=== PATIENT | male | born 1990 | race African-American/Black ===

== ENCOUNTER 2017-07-18 06:40 | Emergency (ER) | payer OTHER ==
[~2017-07-18] VITALS: Ht 188 cm; Wt 89.0 kg
[2017-07-18] MEDS ORDERED: KETOROLAC 30MG/ML VIAL IM ONE (09:45)
[2017-07-18] MEDS ORDERED: ONDANSETRON HCL 4MG/2ML VIAL IV STA (10:32)
[2017-07-18] MEDS ORDERED: SODIUM CHLORIDE 0.9% 1,000 ML IV ONE (10:32)
[2017-07-18] MEDS ORDERED: MORPHINE SULFATE 4 MG/ML CPJ (NOT FOR IM USE) IV STA (10:32)
[2017-07-18] MEDS ORDERED: MORPHINE SULFATE 10 MG/ML CPJ IV SCH (10:45)
[2017-07-18 10:48] LABS: HEMATOCRIT. 43.8 % (42.0-52.0); HEMOGLOBIN. 15.3 g/dL (14.0-18.0); MEAN CORPUSCULAR HEMOGLOBIN 31.2 pg (28.0-32.0); MEAN CORPUSCULAR VOLUME 89.1 fL (80.0-94.0); MEAN PLATELET VOLUME 9.2 fl (7.4-10.4); PLATELET 157 x1000/uL (130-400); RED BLOOD CELL COUNT 4.91 mill/uL (4.7-6.1); RED CELL DISTRIBUTION WIDTH 13.1 % (11.6-14.6)
[2017-07-18 11:04] LABS: CARBON DIOXIDE 28 mEq/L (21-32); CHLORIDE 106 mEq/L (98-107)
[2017-07-18 11:17] LABS: PLATELET ESTIMATE NORMAL
[2017-07-18] MEDS ORDERED: IOHEXOL-300 100 ML BOTTLE ONE (12:08)
[2017-07-18] MEDS ORDERED: DEXAMETHASONE 10 MG/ML VIAL IV ONE (13:45)
[2017-07-18 14:42] VITALS: BP 126/73
== END 2017-07-18 14:43 | disposition home or self-care (01) ==
LOC: ER 07:14
DX: J02.9 Acute pharyngitis, unspecified (principal); F17.200 Nicotine dependence, unspecified, uncomplicated
CPT/HCPCS: 36415; 70491; 80048; 85025; 87070; 87430; 96361; 96372; 96374; 96375; 99285; J1885; J2270; J2405; J7030; Q9967

== ENCOUNTER 2017-11-24 04:45 | Emergency (ER) | payer SELFPAY ==
[~2017-11-24] VITALS: Ht 188 cm; Wt 84.0 kg
[2017-11-24] MEDS ORDERED: ACETAMINOPHEN 325MG TABLET PO ONE (06:45)
[2017-11-24 07:25] VITALS: BP 132/88
== END 2017-11-24 07:26 | disposition home or self-care (01) ==
LOC: ER 04:45
DX: K08.89 Other specified disorders of teeth and supporting structures (principal); F12.10 Cannabis abuse, uncomplicated
CPT/HCPCS: 99283

== ENCOUNTER 2019-02-23 23:20 | Emergency (ER) | payer SELFPAY ==
[~2019-02-23] VITALS: Ht 188 cm; Wt 89.8 kg
[2019-02-24 03:30] VITALS: BP 125/82
[2019-02-24] MEDS ORDERED: IBUPROFEN 600MG TABLET PO ONE (03:30)
== END 2019-02-24 04:05 | disposition home or self-care (01) ==
LOC: ER 23:20
DX: K02.9 Dental caries, unspecified (principal); K04.7 Periapical abscess without sinus; K05.6 Periodontal disease, unspecified
CPT/HCPCS: 99283

== ENCOUNTER 2024-08-23 00:17 | Emergency (ER) | payer OTHER ==
[~2024-08-23] VITALS: Ht 180.3 cm; Wt 90.0 kg
[2024-08-23 00:18] VITALS: TEMP 97.8; O2SAT 100
[2024-08-23] MEDS: SODIUM CHLORIDE 0.9% 1,000 ML IV ONE (01:09)
[2024-08-23 01:21] LABS: BASOPHILS % 0.4 % (0.0-2.0); EOSINOPHILS % 1.4 % (0.0-5.0); HEMATOCRIT. 39.9 % (42.0-52.0); HEMOGLOBIN. 13.4 g/dL (14.0-18.0); LYMPHOCYTES % 28.3 % (20.0-50.0); MEAN CORPUSCULAR HGB CONC 33.6 g/dL (31.0-37.0); MEAN CORPUSCULAR VOLUME 92.2 fL (80.0-94.0); MEAN PLATELET VOLUME 8.7 fl (7.4-10.4); MONOCYTES % 6.9 % (2.0-8.0); PLATELET 236 x1000/uL (130-400); RED BLOOD CELL COUNT 4.33 mill/uL (4.7-6.1); RED CELL DISTRIBUTION WIDTH 12.5 % (11.6-14.6); WHITE BLOOD COUNT 10.1 x1000/uL (4.5-11.0)
[2024-08-23 01:31] LABS: CARBON DIOXIDE 27 mEq/L (21-32); CHLORIDE 106 mEq/L (98-107); POTASSIUM 3.3 mEq/L (3.5-5.1); SODIUM 140 mEq/L (136-145)
[2024-08-23 01:32] LABS: CALCIUM 9.2 mg/dL (8.7-10.4)
[2024-08-23 01:36] LABS: CREATININE 1.1 mg/dL (0.6-1.3); GLUCOSE 112 mg/dL (70-105)
[2024-08-23 01:37] LABS: ETHANOL BLOOD < 10 mg/dL (<10); UREA NITROGEN BLOOD 13 mg/dL (9-23)
[2024-08-23 01:38] LABS: TROPONIN I HIGH SENSITIVITY 4 ng/L (3.0-53)
[2024-08-23] MEDS: TETANUS, DIPHTHERIA, PERTUSSIS VAC/PF 0.5ML (>10YR OLD) IM ONE (01:54)
[2024-08-23] MEDS: LIDOCAINE HCL/EPINEPHRINE 1%-EPI 1:100,000 20ML VIAL INFIL ONE (03:34)
[2024-08-23] MEDS: BACITRACIN ZINC OINT UDPKT TOP ONE (03:34)
[2024-08-23] MEDS: POTASSIUM CHLORIDE 20MEQ/PACKET PO NR (03:39)
[2024-08-23 05:05] LABS: *AMPHETAMINES SCREEN URINE NEGATIVE (NEGATIVE); *BARBITURATES SCREEN URINE NEGATIVE (NEGATIVE); *BENZODIAZEPINES SCREEN URINE NEGATIVE (NEGATIVE); *COCAINE SCREEN URINE NEGATIVE (NEGATIVE); CANNABINOID URINE SCREEN PRESUMPTIVE POSITIVE (NEGATIVE); METHADONE URINE SCREEN NEGATIVE (NEGATIVE); OPIATES URINE SCREEN NEGATIVE (NEGATIVE); PHENCYCLIDINE URINE SCREEN NEGATIVE (NEGATIVE)
[2024-08-23 05:06] LABS: ECSTASY MDMA SCREEN URINE NEGATIVE (NEGATIVE)
[2024-08-23 06:28] VITALS: BP 103/51; PULSE 58; RESP 20; O2SAT 99
== END 2024-08-23 06:48 | disposition short-term general hospital (02) ==
LOC: ER 00:17
DX: R55 Syncope and collapse (principal); R00.1 Bradycardia, unspecified; J45.909 Unspecified asthma, uncomplicated; Z20.822 Contact with and (suspected) exposure to COVID-19
CPT/HCPCS: 80305; 80048; 80320; 85025; 85379; 84484; 36415; 71045; 70450; 90715; 90471; 96360; 96361; 99285; 87426; J3490; J7030; G0480